=== PATIENT | male | born 1950 | race Caucasian/White ===

== ENCOUNTER → 2021-10-18 11:13 | Outpatient (CLI) | payer MEDICARE, SELFPAY ==
--- NOTE | ~2021-10-18 | XR_ITS ---
XR lumbar spine 2-3V 10/18/2021 11:36 Indication: Low back pain Procedure: 3 views lumbar spine Comparison: 10/10/2017 Findings: There is normal lumbar lordosis. Vertebral body heights are maintained. No fracture, sublux ation or dislocation. No evidence for spondylolisthesis. Pedicles intact. Sacral foramen are symmetri c. There is mild lower lumbar facet degenerative change. Impression: 1: Mild lumbar spondylosis. Reviewed, dictated and finalized at location A. BLE MEDICAL EQUIPMENT REPAIRER Impression: 1: Mild lumbar spondylosis.
--- NOTE | ~2021-10-18 | XR_ITS ---
XR hip RT min 3V w AP pelvis 10/18/2021 11:36 Indication: Right hip pain Procedure: 3 views right hip Comparison: No prior studies for comparison. Findings: There is mild bilateral osteoarthritis of the hips. Pelvic rings are intact. Sacral foramen are symmetric. No focal soft tissue abnormality. No foreign bodies. Impression: 1: Mild osteoarthritis of the hips. Reviewed, dictated and finalized at location A. ER TANK OPERATOR Impression: 1: Mild osteoarthritis of the hips.
== END ==
PROVIDERS: PCP Family Medicine; Visit Provider Physician Assistant Medical
DX: M25.551 Pain in right hip (principal); M54.50 Low back pain, unspecified; M47.816 Spondylosis without myelopathy or radiculopathy, lumbar region; M16.0 Bilateral primary osteoarthritis of hip
CPT/HCPCS: 72100; 73502

== ENCOUNTER 2022-06-29 08:36 | Outpatient (CLI) | payer MEDICARE, SELFPAY ==
--- NOTE | 2022-06-29 08:42 | EST_ITS ---
Patient Info Name: Lennox Ricks Age: 72 years : 1950 Gender: Male Ht: 71 in Wt: 258 lbs BSA: 2.46 m2 HR: 69 bpm BP: 117 / 72 mmHg Heart Rhythm: Sinus Rhythm Technical Quality: Fair Exam Date: 06/29/2022 9:02 AM Exam Location: [facility] Patient Status: Outpatient Admit Date: 06/29/2022 Staff Ordering Physician: Car Macdonald MD Car Hopper: Belen Rowley RDCS Attending Provider: DR. OLIVAREZ Referring Physician: Torres URIARTE; Exam Type: CA stress echo Study Info Indications - shortness of breath Treadmill exercise stress echocardiogram is performed. Summary 1. 1. Negative Yan exercise stress test for ischemic ST changes by ECG criteria. Patient achieved 83% MPHR for age group which reduces sensitivity of the test. 2. 2. Reduced functional capacity, achieving 7 METs of workload. 3. 3. Hypertensive response to exercise. 4. 4. Appropriate HR response to exercise. 5. 5. Appropriate HR recovery at 1 minute post exercise. 6. 6. Negative stress echocardiogram for ischemia by wall motion analysis. 7. 7. Patient informed of the above results. Stress Echo Findings Left Ventricle Appropriate increase in LV endocardial thickening with systole. Appropriate augmentation of contractility with systole. No obvious wall motion abnormality. Left Ventricle Normal LV systolic function, no wall motion abnormality. Protocol: Yan Stress ECG Details Stage: REST Duration (min): 1 min : 5 sec Speed (mph): 0.0 Grade (%): 0 HR (bpm): 66 SBP (mmHg): 117 DBP (mmHg): 72 METS: --- Stage: REST Duration (min): 10 min : 37 sec Speed (mph): 0.0 Grade (%): 0 HR (bpm): 66 SBP (mmHg): 117 DBP (mmHg): 72 METS: --- Stage: STAGE 1 Duration (min): 1 min : 0 sec Speed (mph): 1.7 Grade (%): 10 HR (bpm): 90 SBP (mmHg): 117 DBP (mmHg): 72 METS: --- Stage: STAGE 1 Duration (min): 2 min : 0 sec Speed (mph): 1.7 Grade (%): 10 HR (bpm): 96 SBP (mmHg): 117 DBP (mmHg): 72 METS: --- Stage: STAGE 1 Duration (min): 3 min : 0 sec Speed (mph): 1.7 Grade (%): 10 HR (bpm): 102 SBP (mmHg): 176 DBP (mmHg): 71 METS: --- Stage: STAGE 2 Duration (min): 1 min : 0 sec Speed (mph): 2.5 Grade (%): 12 HR (bpm): 110 SBP (mmHg): 176 DBP (mmHg): 71 METS: --- Stage: STAGE 2 Duration (min): 2 min : 0 sec Speed (mph): 0.0 Grade (%): 0 HR (bpm): 121 SBP (mmHg): 223 DBP (mmHg): 69 METS: --- Stage: STAGE 2 Duration (min): 2 min : 0 sec Speed (mph): 0.0 Grade (%): 0 HR (bpm): 121 SBP (mmHg): 223 DBP (mmHg): 69 METS: --- Stage: RECOVERY Duration (min): 0 min : 59 sec Speed (mph): 0.0 Grade (%): 0 HR (bpm): 97 SBP (mmHg): 223 DBP (mmHg): 69 METS: --- Stage: RECOVERY Duration (min): 1 min : 59 sec Speed (mph): 0.0 Grade (%): 0 HR (bpm): 87 SBP (mmHg): 223 DBP (mmHg): 69 METS:
== END 2022-06-29 08:37 | disposition home or self-care (01) ==
PROVIDERS: PCP Family Medicine; Visit Provider Family Medicine
DX: R06.09 Other forms of dyspnea (principal)
CPT/HCPCS: 93351

== ENCOUNTER 2024-03-11 08:55 | Outpatient (CLI) | payer MEDICARE, SELFPAY ==
[2024-03-11 19:58] LABS: Alanine Aminotransferase 27 U/L (6-50); Albumin Level 4.6 g/dL (3.5-5.1); Alkaline Phosphatase 80 U/L (38-126); Anion Gap 6 mmol/L (4-12); Aspartate Amino Transferase 43 U/L (17-59); Bilirubin,Total 0.8 mg/dL (0.2-1.3); Blood Urea Nitrogen 14 mg/dL (9-20); Calcium 9.7 mg/dL (8.4-10.2); Carbon Dioxide 31 mmol/L (22-30); Chloride 102 mmol/L (98-107); Cholesterol 127 mg/dL (0-200); Estimated Glomerular Filt Rate > 60; Glucose 109 mg/dL (65-110); HDL Direct 55 mg/dL; Potassium 3.8 mmol/L (3.4-5.0); Sodium 139 mmol/L (137-145); Triglycerides 223 mg/dL (<150)
[2024-03-11 20:09] LABS: LDL Cholesterol Direct 49 mg/dL
== END 2024-03-11 08:56 | disposition home or self-care (01) ==
LOC: ANHGOSHLAB 08:56
PROVIDERS: PCP Family Medicine; Visit Provider Family Medicine
DX: E11.9 Type 2 diabetes mellitus without complications (principal)
CPT/HCPCS: 36415; 80053; 80061; 83036

== ENCOUNTER 2024-07-26 09:43 | Outpatient (CLI) | payer MEDICARE, SELFPAY ==
[2024-07-26 15:46] LABS: Alanine Aminotransferase 25 U/L (6-50); Albumin Level 4.3 g/dL (3.5-5.1); Alkaline Phosphatase 68 U/L (38-126); Anion Gap 10 mmol/L (4-12); Aspartate Amino Transferase 42 U/L (17-59); Bilirubin,Total 0.7 mg/dL (0.2-1.3); Blood Urea Nitrogen 14 mg/dL (9-20); Calcium 9.3 mg/dL (8.4-10.2); Carbon Dioxide 31 mmol/L (22-30); Chloride 98 mmol/L (98-107); Estimated Glomerular Filt Rate > 60; Glucose 110 mg/dL (65-110); Potassium 3.4 mmol/L (3.4-5.0); Sodium 139 mmol/L (137-145); Uric Acid 5.4 mg/dL (3.5-8.5)
[2024-07-26 17:02] LABS: Hemoglobin A1C 6.3 % (<5.7)
== END 2024-07-26 09:44 | disposition home or self-care (01) ==
PROVIDERS: PCP Family Medicine; Visit Provider Family Medicine
DX: M10.9 Gout, unspecified (principal); E11.9 Type 2 diabetes mellitus without complications
CPT/HCPCS: 36415; 80053; 83036; 84550

== ENCOUNTER 2024-12-02 10:03 | Outpatient (CLI) | payer MEDICARE, SELFPAY ==
[2024-12-02 17:12] LABS: Alanine Aminotransferase 31 U/L (6-50); Albumin Level 4.5 g/dL (3.5-5.1); Alkaline Phosphatase 70 U/L (38-126); Anion Gap 11 mmol/L (4-12); Aspartate Amino Transferase 48 U/L (17-59); Bilirubin,Total 0.7 mg/dL (0.2-1.3); Blood Urea Nitrogen 15 mg/dL (9-20); Calcium 9.1 mg/dL (8.4-10.2); Carbon Dioxide 31 mmol/L (22-30); Chloride 98 mmol/L (98-107); Cholesterol 141 mg/dL (0-200); Estimated Glomerular Filt Rate > 60; Glucose 114 mg/dL (65-110); HDL Direct 57 mg/dL; Potassium 3.7 mmol/L (3.4-5.0); Sodium 140 mmol/L (137-145); Triglycerides 207 mg/dL (<150); Uric Acid 4.8 mg/dL (3.5-8.5)
[2024-12-02 17:21] LABS: Hemoglobin A1C 6.2 % (<5.7)
[2024-12-02 17:23] LABS: LDL Cholesterol Direct 45 mg/dL
[2024-12-02 17:31] LABS: Creatinine Urine 249.1 mg/dL
[2024-12-02 20:21] LABS: MALB Creatinine Ratio 180.6 mg/g (0-30); Microalbumin Urine Random 449.8 mg/L (0-16.7)
== END 2024-12-02 10:04 | disposition home or self-care (01) ==
PROVIDERS: PCP Family Medicine; Visit Provider Family Medicine
DX: E11.9 Type 2 diabetes mellitus without complications (principal); M10.9 Gout, unspecified
CPT/HCPCS: 36415; 80053; 80061; 82043; 83036; 84550

== ENCOUNTER 2025-04-14 10:09 | Outpatient (CLI) | payer MEDICARE, SELFPAY ==
[2025-04-14 13:39] LABS: Alanine Aminotransferase 27 U/L (6-50); Albumin Level 4.5 g/dL (3.5-5.1); Alkaline Phosphatase 66 U/L (38-126); Anion Gap 9 mmol/L (4-12); Aspartate Amino Transferase 68 U/L (17-59); Bilirubin,Total 0.7 mg/dL (0.2-1.3); Blood Urea Nitrogen 19 mg/dL (9-20); Calcium 9.4 mg/dL (8.4-10.2); Carbon Dioxide 27 mmol/L (22-30); Chloride 103 mmol/L (98-107); Estimated Glomerular Filt Rate > 60; Glucose 113 mg/dL (65-110); Sodium 139 mmol/L (137-145); Total Protein 7.2 g/dL (6.3-8.2)
[2025-04-14 14:29] LABS: Hemoglobin A1C 5.8 % (<5.7)
== END 2025-04-14 10:10 | disposition home or self-care (01) ==
PROVIDERS: PCP Family Medicine; Visit Provider Family Medicine
DX: E11.9 Type 2 diabetes mellitus without complications (principal)
CPT/HCPCS: 36415; 80053; 83036

== ENCOUNTER 2025-04-29 11:02 | Outpatient (CLI) | payer MEDICARE, SELFPAY ==
--- NOTE | ~2025-04-29 | XR_ITS ---
XR hand BI arthritis min 3V Ordering provider: Julián Farmer MD History: . M79.641 - Pain in right hand X2YRS . Comparison: None. FINDINGS: RIGHT HAND: --BONES: No acute fracture or dislocation. No osteopenia. --JOINT SPACES: Narrowing of the distal interphalangeal joints. Osteophytes are noted.. No erosion or sclerosis. --SOFT TISSUES: Unremarkable. No soft tissue swelling or nodules. LEFT HAND: --BONES: No acute fracture or dislocation. --JOINT SPACES: Narrowing of the distal interphalangeal joints. No erosion or sclerosis. Osteophytes are noted. --SOFT TISSUES: Unremarkable. No soft tissue swelling or nodules. IMPRESSION: 1. No acute osseous abnormality bilateral hands. 2. Polyarticular osteoarthritis. Reviewed, dictated and finalized at location A.
== END 2025-04-29 11:03 | disposition home or self-care (01) ==
LOC: ANHIMG 11:09
PROVIDERS: PCP Family Medicine; Visit Provider Plastic Surgery
DX: M19.041 Primary osteoarthritis, right hand (principal); M19.042 Primary osteoarthritis, left hand
CPT/HCPCS: 73130

== ENCOUNTER 2025-10-06 09:45 | Outpatient (CLI) | payer MEDICARE, SELFPAY ==
[2025-10-06 19:55] LABS: Hemoglobin A1C 6.1 % (<5.7)
[2025-10-06 20:00] LABS: Alanine Aminotransferase 26 U/L (6-50); Albumin Level 4.4 g/dL (3.5-5.1); Alkaline Phosphatase 68 U/L (38-126); Anion Gap 6 mmol/L (4-12); Aspartate Amino Transferase 43 U/L (17-59); Bilirubin,Total 0.8 mg/dL (0.2-1.3); Blood Urea Nitrogen 15 mg/dL (9-20); Calcium 9.5 mg/dL (8.4-10.2); Carbon Dioxide 28 mmol/L (22-30); Chloride 102 mmol/L (98-107); Estimated Glomerular Filt Rate > 60; Glucose 94 mg/dL (65-110); Potassium 4.0 mmol/L (3.4-5.0); Sodium 136 mmol/L (137-145); Total Protein 7.4 g/dL (6.3-8.2); Uric Acid 4.7 mg/dL (3.5-8.5)
== END 2025-10-06 09:46 | disposition home or self-care (01) ==
PROVIDERS: PCP Family Medicine; Visit Provider Family Medicine
DX: M10.9 Gout, unspecified (principal)
CPT/HCPCS: 36415; 80053; 83036; 84550